=== PATIENT | male | born 1990 | race Caucasian/White ===

== ENCOUNTER 2021-03-10 09:08 | Emergency (ER) | payer OTHER ==
[2021-03-10 09:13] VITALS: RESP 18
--- NOTE | 2021-03-10 09:41 | XR ---
EXAMINATION TYPE: XR hand complete LT DATE OF EXAM: 03/10/2021 CLINICAL HISTORY: Smashing injury with pain TECHNIQUE: Frontal, lateral and oblique images of the left hand are obtained. COMPARISON: None. FINDINGS: There is no acute fracture/dislocation evident in the left hand with particular attention to the left thumb at the area of clinical concern. The joint spaces in the left hand appear within no rmal limits. The overlying soft tissue appears unremarkable. IMPRESSION: There is no acute fracture or dislocation in the left hand.
--- NOTE | 2021-03-10 09:42 | ED ---
General Adult HPI - General Chief complaint: Extremity Injury, Upper Stated complaint: [facility]-thumb injury Time Seen by Provider: 03/10/21 09:24 Source: patient Limitations: no limitations - History of Present Illness Initial comments: 30-year-old male presents to the emergency room for left thumb pain. Patient accidentally hit his thumb with a hammer at work and it cut him. Tetanus is not up-to-date. Patient denies any difficulty moving his thumb. Patient has no other complaints at this time including shortness of breath, chest pain, abdominal pain, nausea or vomiting, headache, or visual changes. - Related Data Allergies Allergy/AdvReac Type Severity Reaction Status Date / Time No Known Allergies Allergy Verified 03/10/21 09:13 Review of Systems ROS Statement: Those systems with pertinent positive or pertinent negative responses have been documented in the HPI. ROS Other: All systems not noted in ROS Statement are negative. Past Medical History Past Medical History: No Reported History History of Any Multi-Drug Resistant Organisms: None Reported Past Surgical History: No Surgical Hx Reported Past Psychological History: No Psychological Hx Reported Smoking Status: Current every day smoker Past Alcohol Use History: Occasional Past Drug Use History: Marijuana General Exam Limitations: no limitations General appearance: alert, in no apparent distress Head exam: Present: atraumatic, normocephalic, normal inspection Eye exam: Present: normal appearance, PERRL, EOMI. Absent: scleral icterus, conjunctival injection, periorbital swelling ENT exam: Present: normal exam, mucous membranes moist Neck exam: Present: normal inspection, full ROM. Absent: tenderness, meningismus, lymphadenopathy Respiratory exam: Present: normal lung sounds bilaterally. Absent: respiratory distress, wheezes, rales, rhonchi, stridor Cardiovascular Exam: Present: regular rate, normal rhythm, normal heart sounds. Absent: systolic murmur, diastolic murmur, rubs, gallop, clicks GI/Abdominal exam: Present: soft, normal bowel sounds. Absent: distended, tenderness, guarding, rebound, rigid Extremities exam: Present: full ROM (full ROM L thumb including flexion and extension), normal capillary refill (cap refill < 2 seconds L thumb, radial pulse 2+), other (sensation intact L thumb. 2 cm laceration palmar aspect IP joint left thumb). Absent: pedal edema, joint swelling, calf tenderness Course Vital Signs 03/10/21 09:11 Temperature 98.6 F Pulse Rate 67 Respiratory 18 Rate Blood Pressure 133/84 O2 Sat by Pulse 98 Oximetry Procedures - Laceration Laceration #1 Consent Obtained: verbal consent Indication: laceration Site: hand Size (cm): 2 Description: linear Depth: simple, single layer Anesthetic Used: lidocaine 1% Anesthesia Technique: local infiltration Amount (mls): 3 Pre-repair: wound explored, irrigated extensively, deep structures intact Type of Sutures: nylon Size of Sutures: 5-0 Number of Sutures: 3 Technique: simple, interrupted Patient Tolerated Procedure: well, no complications Medical Decision Making - Medical Decision Making X-ray of the left hand shows no acute fracture or dislocation. Neurovascular status intact left thumb. Laceration repaired. Care and return parameters discussed Disposition Clinical Impression: Laceration Disposition: HOME SELF-CARE Condition: Good Instructions (If sedation given, give patient instructions): Care For Your Stitches (ED), Laceration (ED) Additional Instructions: Please keep the area clean with gentle soap and water. You can apply antibiotic ointment twice daily. keep covered and dirty environments. Follow up with your doctor. Return in 7-10 days for suture removal. Is patient prescribed a controlled substance at d/c from ED?: No Referrals: Leticia Henriquez MD [REFERRING] - 1-2 days Time of Disposition: 10:21
[2021-03-10] MEDS ORDERED: LIDOCAINE 1% INJ 10MG/ML (20 ML MDV) SQ ONE (09:50)
[2021-03-10] MEDS ORDERED: DIPH,PERTUS(ACELL)TETVAC-LF 0.5 ML VIAL IM ONE (09:50)
[2021-03-10] MEDS ORDERED: BACITRACIN OINT 1 EACH PACKET TOPICAL STA (10:20)
[2021-03-10 11:05] VITALS: BP 132/86; PULSE 63; TEMP 97.8
== END 2021-03-10 11:05 | disposition home or self-care (01) ==
LOC: EC 09:08
DX: S61.412A Laceration without foreign body of left hand, initial encounter (principal); F17.200 Nicotine dependence, unspecified, uncomplicated; F12.90 Cannabis use, unspecified, uncomplicated; W27.8XXA Contact with other nonpowered hand tool, initial encounter; Y99.0 Civilian activity done for income or pay
CPT/HCPCS: 73130; 90715; 99283; 90471; 12001; J2001